=== PATIENT | female | born 1955 | race Caucasian/White ===

== ENCOUNTER 2016-12-27 14:38 | Emergency (ER) | payer OTHER ==
[~2016-12-27] VITALS: Ht 167.6 cm; Wt 93.0 kg
[~2016-12-27 14:38] MED LIST: PREV15CA20 PO; SUMA6P SQ
[2016-12-27 14:41] VITALS: BP 122/87; PULSE 110; RESP 17; TEMP 99.2; O2SAT 95
[2016-12-27] MEDS ORDERED: ZOFR4TAB3 SL (14:57)
[2016-12-27] MEDS ORDERED: OSEL75 PO (14:57)
--- NOTE | 2016-12-27 15:03 | PD ---
HPI Chief Complaint: Cold / Flu Symptoms Time Seen by Provider: 14:57 Travel History International Travel<30 days: No Contact w/Intl Traveler<30days: No Traveled to known affect area: No History of Present Illness HPI Patient is a 61-year-old otherwise healthy female presenting complaining of "I think I have the flu". She reports some cough and cold symptoms for the last week and her daughter was diagnosed with influenza 3 days prior. They do live together. Last evening the patient began having myalgias and had one episode of nausea and vomiting which has not recurred. This morning she has also had some redness in her eyes and mild tearing without photophobia. She endorses frontal headaches but denies neck stiffness. She has continued nasal congestion and a dry cough. Denies chest pain, dyspnea and wheezing. She denies abdominal pain, diarrhea and dysuria. No current nausea. She denies tobacco use. She denies rashes. PFSH Past Medical History GERD: Yes Headaches: Yes (MIGRAINES) Psychiatric: No Migraines: Yes ?: Not Menopausal: Yes Tubal Ligation: Yes Past Surgical History Abdominal Surgery: Yes (jorje and appy 1973) Appendectomy: Yes Cardiac Surgery: No Cholecystectomy: Yes Gynecologic Surgery: Yes (hysterectomy 2001) Hysterectomy: Yes Oral Surgery: Yes (tonsils 1964) Thoracic Surgery: No Tonsillectomy: Yes Social History Alcohol Use: Yes (OCCASSIONAL) Tobacco Use: No (QUIT 6 MONTH AGO) Substance Use: No Allergies-Medications (Allergen,Severity, Reaction): Coded Allergies: No Known Allergies (Verified , 12/27/16) Reported Meds & Prescriptions Reported Meds & Active Scripts Active No Active Prescriptions or Reported Medications Review of Systems Except as stated in HPI: all other systems reviewed are Neg Physical Exam Narrative GENERAL: Well-developed and well-nourished adult female in no acute distress. SKIN: Warm and dry. Good turgor without tenting. HEAD: Normocephalic and atraumatic. EYES: PERRL bilaterally, 5mm. EOMI bilaterally. Very mild bilateral conjunctival injection peripherally without limbal injection, no discharge. No icterus present. No proptosis. Lids without edema or erythema. ENT: Bilateral ear canals are non-edematous/non-erythematous without otorrhea. Bilateral TMs have intact landmarks and without distortion, perforation, air- fluid level or erythema. Nasal mucosa erythematous and edematous without discharge, septum intact and midline. Buccal mucosa pink and moist. Oropharynx free of erythema, tonsillar hypertrophy, masses, swelling, asymmetry and exudates. Uvula midline and airway patent. NECK: Supple, no meningeal signs. Trachea midline, no JVD. No cervical or facial lymphadenopathy. CARDIOVASCULAR: Regular rate and rhythm without murmurs, rubs, clicks or gallops. Radial and posterior tibial pulses 2+ bilaterally. No pedal edema. RESPIRATORY: Clear to auscultation bilaterally with symmetrical rise and fall, no distress or use of accessory muscles. GASTROINTESTINAL: Non-tender, non-distended. Normal bowel sounds all 4 quadrants. No masses or organomegaly present. MUSCULOSKELETAL: No gait disturbances. Patient freely moving all four extremities spontaneously. Extremities without clubbing, cyanosis, or edema. No obvious deformities. NEUROLOGIC: CN II-XII grossly intact. Awake and alert. Motor grossly within normal limits. Normal speech. PSYCHIATRIC: Appropriate mood and affect; insight and judgment normal. Data Data Last Documented VS Vital Signs Date Time Temp Pulse Resp B/P Pulse Ox O2 Delivery O2 Flow Rate FiO2 12/27/16 14:41 99.2 110 17 122/87 95 MDM Medical Decision Making Medical Screen Exam Complete: Yes Emergency Medical Condition: Yes Differential Diagnosis Influenza versus viral syndrome versus common cold versus bronchitis Narrative Course Patient is a 61-year-old female who is afebrile and nontoxic-appearing presenting with 2 day history of symptoms suggestive of viral syndrome. As she lives with her daughter who has been diagnosed with influenza and the patient did not receive influenza vaccine and has symptoms suggestive of influenza we' ll treat empirically with Tamiflu. Although the patient has no nausea now this may return she will provide Zofran. She is evidence of good volume status on exam and is able to tolerate fluids. She reports myalgias and frontal headache but has no photophobia or meningeal signs. She has no abdominal pain or current GI symptoms. Lungs clear to auscultation with no increased work of breathing. I considered secondary bacterial infection given she has had cold symptoms for approximately one week however as she was only exposed to influenza within the last several days that she was totally within the treatment window. Patient was instructed to drink lots of fluids and stay well- hydrated and follow-up with PCP on Thursday. Recommend return if develops any new or worsening symptoms.See discharge paperwork for further instructions. The plan was discussed with the patient who acknowledged their understanding and agreement. Reinforced the follow-up with primary care is critically important. Patient instructed on emergent conditions that should prompt return to ED. Diagnosis Primary Impression: Viral syndrome Patient Instructions: General Instructions, Viral Syndrome (ED) Additional Instructions: Take medication as prescribed OTC Mucinex, cough suppressants, and decongestants as needed OTC Tylenol or Ibuprofen for fever and discomfort Drink lots of fluid to help clear mucous/drainage and stay hydrated Follow up with PCP in 2 days Return to the ED for any acute worsening of symptoms Med/Other Pt SpecificInfo: Prescription(s) given Scripts Ondansetron Odt (Zofran Odt)4 Mg Tab4 Mg SL Q8HR PRN (Nausea/Vomiting) #12 TAB Prov:Gilmer Larios MD 12/27/16 Oseltamivir (Tamiflu)75 Mg Cap75 Mg PO BID 5 Days Prov:Gilmer Larios MD 12/27/16 Disposition: 01 DISCHARGE HOME Condition: Stable Raphael Gilbert III Dec 27, 2016 15:03
== END 2016-12-27 15:15 | disposition home or self-care (01) ==
LOC: PHEFT 14:38
DX: B34.9 Viral infection, unspecified (principal); M79.1 Myalgia; R11.2 Nausea with vomiting, unspecified; H57.8 Other specified disorders of eye and adnexa; R51 Headache; R09.81 Nasal congestion; Z87.19 Personal history of other diseases of the digestive system; Z86.69 Personal history of other diseases of the nervous system and sense organs; Z87.891 Personal history of nicotine dependence
CPT/HCPCS: 99283